=== PATIENT | female | born 1975 | race Two or more races ===

== ENCOUNTER → 2022-08-31 | Outpatient (CLI) | payer OTHER ==
--- NOTE | 2022-08-31 17:10 | XR ---
EXAMINATION TYPE: XR knee complete RT DATE OF EXAM: 08/31/2022 4:54 PM INDICATION: Patient age:Female; 46 years old; Reason for study: [id number]; COMPARISON: None. TECHNIQUE: The Right knee(s) was examined in Frontal, lateral and oblique projections. FINDINGS: No evidence of any acute osseous pathology, joint space narrowing, soft tissue swelling, or joint effusion is noted. Mild osteophyte formation and tibial plateau and patella. IMPRESSION: 1. No acute osseous pathology. 2. Mild tricompartmental osteoarthritic changes.
--- NOTE | 2022-08-31 17:10 | XR ---
EXAMINATION TYPE: XR shoulder complete LT DATE OF EXAM: 08/31/2022 4:54 PM INDICATION: Patient age:Female; 46 years old; Reason for study: [id number]; COMPARISON: None TECHNIQUE: The left shoulder was examined in AP, internally rotated and scapular Y projections. . FINDINGS: No evidence of acute osseous pathology, joint dislocation, or soft tissue swelling. The remaining por tions of the visualized chest are unremarkable. Mild osteophyte formation of the distal clavicle. IMPRESSION: 1. No acute osseous pathology. 2. Mild left shoulder osteoarthritis changes.
== END | disposition home or self-care (01) ==
LOC: RADXRMAIN 16:37
PROVIDERS: ATTEND Emergency Medicine
DX: S43.402A Unspecified sprain of left shoulder joint, initial encounter (principal); S80.01XA Contusion of right knee, initial encounter; M17.11 Unilateral primary osteoarthritis, right knee; M19.012 Primary osteoarthritis, left shoulder

== ENCOUNTER → 2022-09-17 | Day surgery (SDC) | payer BC ==
--- NOTE | 2022-09-23 09:51 | MM ---
Reason for Exam: Additional evaluation requested from abnormal screening. Risk Values: America 5 year model risk: 0.5%. NCI Lifetime model risk: 6.5%. Tissue Density: Left: The breast tissue is heterogeneously dense. This may lower the sensitivity of mammography. Pathology Description: Location: 10 o'clock. Marker Left Behind. Needle Type: Mammotone Cores: 6 Skin Nicks: 1 Gauge: 13 The procedure of ultrasound guided core biopsy was explained to the patient. Benefits, alternatives, and risks were discussed. An informed consent was then obtained. A timeout was performed. The patient was placed in supine positioning for imaging and for the procedure. The overlying skin was prepped and draped in usual sterile fashion. Lidocaine was used as anesthetic into the skin and subcutaneous tissue up to area of concern in the left breast. A small skin tian was made with surgical scalpel. Under ultrasound guidance, a 12-gauge vacuum assisted biopsy gun device was used to obtain 7 core samples. A biopsy clip was left in lesion. Hydromark coil core marker was placed. There was some bleeding present which was easily controlled with direct pressure. The patient tolerated the procedure well without any immediate complication. The patient was kept in the radiology department for short stay after the procedure and then discharged home in stable condition. Postprocedure mammogram: The patient was transferred to mammography for physician ordered post procedure mammogram for clip placement verification. Clip is within the expected region of the biopsy. Impression: Successful ultrasound guided core biopsy of area of concern in the left breast, full pathology results to follow. Recommendations: 1. Recommendations are pending pathology results. Pathology Results: Result: Benign, Fibroadenoma. LEFT BREAST, 10:00, ULTRASOUND GUIDED NEEDLE CORE BIOPSY: Fibroadenoma and background fibrocystic changes. Overall Assessment: Benign Assessment: MG diagnostic mammo LT wo CAD. - Left: Benign, BI-RAD 2. Management: Diagnostic Breast Ultrasound of the left breast in 6 months. Electronically signed and approved by: Viktor Davis D.O. Radiologis
== END ==
LOC: RADUSWWP 12:08
PROVIDERS: ATTEND Surgery
DX: D24.2 Benign neoplasm of left breast (principal); N60.12 Diffuse cystic mastopathy of left breast; R92.8 Other abnormal and inconclusive findings on diagnostic imaging of breast
CPT/HCPCS: 88305; 77065; 19083; A4648

== ENCOUNTER → 2022-09-24 | Outpatient (CLI) | payer BC ==
[2022-09-24 11:12] VITALS: BP 123/80; PULSE 75; RESP 16; TEMP 98.3
--- NOTE | 2022-09-24 11:53 | P.GSHP ---
History of Present Illness H&P Date: 09/24/22 Chief Complaint: fibroadenoma left breast Niin is a 46 year old female seen in consultation for Dr. Leon regarding an ultrasound core biopsy of the left breast. She underwent a bilateral diagnostic mammogram on [id number]. This revealed a 1.9 x 1.8 cm lesion in the left breast. This was followed by an ultrasound of the left breast which was done in . This revealed a 1.4 x 1.5 cm lesion in the left breast for which core biopsy was recommended. The biopsy was performed [id number]. Pathology revealed a fibroadenoma and this was felt to be benign concordant. The process started with the patient getting a chest x-ray on 07/01/2022. The chest x-ray led to a computed tomography scan of the chest. The computed tomography scan was performed on . The computed tomography scan revealed a left breast mass and a mammogram was recommended. The patient was initially seen secondary to chest pain which led to the CT scan. He had lifted a child that her job and developed a strained muscle. She did not feel any lumps masses or nodules of concern in either breast prior to the workup. Since the workup she can feel some fullness at the area of the biopsy. She is not complaining of any niopple discharge or skin changes. Prior to the ultrasound-guided left breast core biopsy should not had any surgery on her breast. Caffeine: drinks pop daily at least 1 can nicotine: none Chocolate: occasional Family History: paternal grandmother: breast cancer from this maternal granmother: lung cancer maternal cousin: testicular cancer maternal aunt: Leukemia Hormonal history: menarche: 13 , breast fed: yes, age at first : 21 periods does not have them as is on DEPO DEPO: 4 years had an ablation done prior to this BCP: only DEPO Surgical History: uterine ablation Medical History: peptic ulcer in the past Social History: nicotine: none alcohol: none drugs: none - Constitutional Constitutional: Denies chills, Denies fever - EENT Eyes: denies blurred vision, denies pain Ears: deny: decreased hearing, tinnitus Ears, nose, mouth and throat: Denies headache, Denies sore throat - Breasts Breasts: bilateral: as per HPI - Cardiovascular Cardiovascular: Denies chest pain, Denies shortness of breath - Respiratory Respiratory: Denies cough, Denies 7 - Gastrointestinal Gastrointestinal: Denies abdominal pain, Denies diarrhea, Denies nausea, Denies vomiting - Genitourinary (Female) Genitourinary: Denies dysuria, Denies hematuria - Menstruation Menstruation: Reports as per HPI - Musculoskeletal Musculoskeletal: Denies myalgias - Integumentary Integumentary: Denies pruritus, Denies rash - Neurological Neurological: Denies numbness, Denies weakness - Psychiatric Psychiatric: Denies anxiety, Denies depression - Endocrine Endocrine: Denies fatigue, Denies weight change - Hematologic/Lymphatic Comment: none - Allergic/Immunologic Allergic/Immunologic: Reports seasonal allergies Past Medical History Additional Past Medical History / Comment(s): brain "cluster of veins" , 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 History of Any Multi-Drug Resistant Organisms: None Reported Past Surgical History: Uterine Ablation Past Anesthesia/Blood Transfusion Reactions: No Reported Reaction Past Psychological History: No Psychological Hx Reported Smoking Status: Never smoker Past Alcohol Use History: None Reported Past Drug Use History: None Reported Medications and Allergies Home Medications Medication Instructions Recorded Confirmed Type No Known Home Medications 09/09/22 09/24/22 History Allergies Allergy/AdvReac Type Severity Reaction Status Date / Time No Known Allergies Allergy Verified 09/24/22 11:12 Surgical - Exam Vital Signs Temp Pulse Resp BP Pulse Ox 98.3 F 75 16 123/80 98 09/24/22 11:10 09/24/22 11:10 09/24/22 11:10 09/24/22 11:10 09/24/22 11:10 - General no distress - Eyes normal ocular movement - ENT no hearing loss - Neck trachea midline - Respiratory normal respiratory effort, clear to auscultation - Cardiovascular Rhythm: regular Heart Sounds: normal: S1, S2 - Abdomen Abdomen: soft, non tender, no guarding, no rigid, no rebound - Integumentary normal turgor - Neurologic no disoriented, no combative - Musculoskeletal normal gait, normal posture - Psychiatric oriented to time, oriented to person, oriented to place, speech is normal, memory intact Breast Exam: BRA: 34B inspection: Bilateral grade 2/3 ptosis Palpation: Right breast: Multi-positional exam fibrocystic changes no dominant masses or nodules of concern Right axilla: No adenopathy of concern left breast: Multiple positional exam fibrocystic changes, in the upper inner quadrant there is some fullness which may be related to her recent core biopsy was in the vicinity of the known fibroadenoma Left axilla: No adenopathy of concern Results Ultrasound and mammogram reviewed Assessment and Plan Assessment: Impression: Ultrasound proven fibroadenoma left breast at area of radiographic abnormality Fibrocystic breast changes Plan: 3. Left breast ultrasound in 6 months with physician exam at that time If the area increases her patient is concerned she will be seen sooner CC: Dr. Leon
== END ==
LOC: WWCWWP 10:44
PROVIDERS: ATTEND Surgery
DX: N60.22 Fibroadenosis of left breast (principal)

== ENCOUNTER → 2023-03-25 | Outpatient (CLI) | payer BC ==
--- NOTE | 2023-03-25 10:55 | USB ---
Reason for Exam: Follow-up at short interval from prior study. Patient History: 09/17/2022, Benign US biopsy breast VAD LT on the left side. Risk Values: America 5 year model risk: 0.8%. NCI Lifetime model risk: 7.7%. Prior Study Comparison: 09/17/2022 Left MG diagnostic mammo LT wo CAD., [facility]. Findings: The area of palpable concern of the left breast, the axilla of the left breast and the retroareolar of the left breast were scanned. Targeted ultrasound at the patient's 10:00 biopsy site including the subareolar region and axilla. Redemonstrated biopsy-proven fibroadenoma currently 1.5 x 1.3 x 0.6 cm. Microclip within the fibroadenoma from recent biopsy. No other solid or cystic lesion. Overall Assessment: Benign, BI-RAD 2 Management: Screening Mammogram of both breasts in 6 months. A clinical breast exam by your physician is recommended on an annual basis and results should be correlated with mammographic findings. This exam should not preclude additional follow-up of suspicious palpable abnormalities. Results were given to the patient verbally at the time of exam. Electronically signed and approved by: Hodan Barlow M.D. Radiologist
--- NOTE | 2023-03-25 11:26 | P.PN ---
Subjective Progress Note Date: 03/25/23 fibroadenoma left breast Nini is a 46 year old female seen in consultation for Dr. Leon regarding an ultrasound core biopsy of the left breast. She underwent a bilateral diagnostic mammogram on [id number]. This revealed a 1.9 x 1.8 cm lesion in the left breast. This was followed by an ultrasound of the left breast which was done in . This revealed a 1.4 x 1.5 cm lesion in the left breast for which core biopsy was recommended. The biopsy was performed [id number]. Pathology revealed a fibroadenoma and this was felt to be benign concordant. The process started with the patient getting a chest x-ray on 07/01/2022. The chest x-ray led to a computed tomography scan of the chest. The computed tomography scan was performed on . The computed tomography scan revealed a left breast mass and a mammogram was recommended. The patient was initially seen secondary to chest pain which led to the CT scan. He had lifted a child that her job and developed a strained muscle. She did not feel any lumps masses or nodules of concern in either breast prior to the workup. Since the workup she can feel some fullness at the area of the biopsy. She is not complaining of any niopple discharge or skin changes. Prior to the ultrasound-guided left breast core biopsy should not had any surgery on her breast. She had a repeat left breast ultrasound on 03-25-23 which was BIRAD 2 and showed the area of fibroadenoma to be stable, 1.5 by 1.3 cm in size. It is not complaining of any new lumps masses or nodules of concern in either breast. She is complaining of some fullness in the 1 to 2 o'clock position of the left breast, this area was not scanned. Caffeine: drinks pop daily at least 1 can nicotine: none Chocolate: occasional Family History: paternal grandmother: breast cancer from this maternal granmother: lung cancer maternal cousin: testicular cancer maternal aunt: Leukemia Hormonal history: menarche: 13 , breast fed: yes, age at first : 21 periods does not have them as is on DEPO DEPO: 4 years had an ablation done prior to this BCP: only DEPO Surgical History: uterine ablation Medical History: peptic ulcer in the past Social History: nicotine: none alcohol: none drugs: none - Constitutional Constitutional: Denies chills, Denies fever - EENT Eyes: denies blurred vision, denies pain Ears: deny: decreased hearing, tinnitus Ears, nose, mouth and throat: Denies headache, Denies sore throat - Breasts Breasts: bilateral: as per HPI - Cardiovascular Cardiovascular: Denies chest pain, Denies shortness of breath - Respiratory Respiratory: Denies cough, Denies 7 - Gastrointestinal Gastrointestinal: Denies abdominal pain, Denies diarrhea, Denies nausea, Denies vomiting - Genitourinary (Female) Genitourinary: Denies dysuria, Denies hematuria - Menstruation Menstruation: Reports as per HPI - Musculoskeletal Musculoskeletal: Denies myalgias - Integumentary Integumentary: Denies pruritus, Denies rash - Neurological Neurological: Denies numbness, Denies weakness - Psychiatric Psychiatric: Denies anxiety, Denies depression - Endocrine Endocrine: Denies fatigue, Denies weight change - Hematologic/Lymphatic Comment: none - Allergic/Immunologic Allergic/Immunologic: Reports seasonal allergies Past Medical History Additional Past Medical History / Comment(s): brain "cluster of veins" , 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 History of Any Multi-Drug Resistant Organisms: None Reported Past Surgical History: Uterine Ablation Past Anesthesia/Blood Transfusion Reactions: No Reported Reaction Past Psychological History: No Psychological Hx Reported Smoking Status: Never smoker Past Alcohol Use History: None Reported Past Drug Use History: None Reported Medications and Allergies Home Medications Medication Instructions Recorded Confirmed Type No Known Home Medications 09/09/22 09/24/22 History Allergies Allergy/AdvReac Type Severity Reaction Status Date / Time No Known Allergies Allergy Verified 09/24/22 11:12 Objective - Constitutional General appearance: Present: cooperative - EENT Eyes: Present: EOMI ENT: Present: hearing grossly normal - Neck Neck: Present: normal ROM - Respiratory Respiratory: bilateral: CTA - Cardiovascular Rhythm: regular Heart sounds: normal: S1, S2 - Gastrointestinal General gastrointestinal: Present: soft - Integumentary Integumentary: Present: normal turgor - Musculoskeletal Musculoskeletal: Present: gait normal - Psychiatric Psychiatric: Present: A&O x's 3, appropriate affect, intact judgment & insight - Additional findings Additional findings: Breast Exam: BRA: 34B inspection: Bilateral grade 2/3 ptosis Palpation: Right breast: Multi-positional exam fibrocystic changes no dominant masses or nodules of concern Right axilla: No adenopathy of concern left breast: Multiple positional exam fibrocystic changes, although on prior examination upper inner quadrant there was some fullness which was felt related to core biopsy nothing of concern was noted in the upper inner quadrant on today's exam, there is some fullness in the 1 to 2 o'clock position in the lateral aspect of the left breast, this area was not scan on today's ultrasound Left axilla: No adenopathy of concern Assessment and Plan Assessment: Impression: Ultrasound core biopsy proven fibroadenoma left breast at area of radiographic abnormality, upper inner left breast new nodularity 1 to 2 o'clock position left breast Fibrocystic breast changes Plan: bilatereal mammogram in 6 months Ultrasound of area of new nodularity 1 to 2 o'clock position left breast at this time with follow up after ultrasound CC: Dr. Leon
== END | disposition home or self-care (01) ==
LOC: RADUSWWP 10:14
PROVIDERS: ATTEND Surgery
DX: R92.8 Other abnormal and inconclusive findings on diagnostic imaging of breast (principal)

== ENCOUNTER → 2023-03-25 | Outpatient (CLI) | payer BC ==
[2023-03-25 11:26] VITALS: BP 121/83; PULSE 73; RESP 16; TEMP 98.7
== END ==
LOC: WWCWWP 10:13
PROVIDERS: ATTEND Surgery
DX: Z53.9 Procedure and treatment not carried out, unspecified reason (principal)

== ENCOUNTER → 2023-03-25 | Outpatient (CLI) | payer BC ==
--- NOTE | 2023-03-25 14:39 | USB ---
Reason for Exam: Clinical finding. Patient History: Menarche at age 12. First Full-Term at age 21. 09/17/2022, Benign US biopsy breast VAD LT on the left side. Paternal grandmother had breast cancer. Risk Values: [place] 5 year model risk: 0.7%. NCI Lifetime model risk: 6.5%. Technique: Method: Targeted. Prior Study Comparison: 09/17/2022 Left MG diagnostic mammo LT wo CAD., [facility]. Findings: The area of palpable concern of the left breast, the axilla of the left breast and the retroareolar of the left breast were scanned. Additional targeted scanning at the physician palpated site 1 to 2:00 position. Dense tissues are present here without solid or cystic lesion.. Overall Assessment: Benign, BI-RAD 2 Management: Screening Mammogram of both breasts in 1 year. Further clinical management of any suspicious palpable abnormalities. A clinical breast exam by your physician is recommended on an annual basis. Patient should continue monthly self breast exams. Results were given to the patient verbally at the time of exam. Electronically signed and approved by: Hodan Barlow M.D. Radiologist
--- NOTE | 2023-03-25 14:57 | MM ---
Reason for Exam: Clinical finding. Patient History: Menarche at age 12. First Full-Term at age 21. 09/17/2022, Benign US biopsy breast VAD LT on the left side. Paternal grandmother had breast cancer. Risk Values: America 5 year model risk: 0.7%. NCI Lifetime model risk: 6.5%. Prior Study Comparison: 09/17/2022 Left MG diagnostic mammo LT wo CAD., [facility]. Tissue Density: Left: The breast tissue is heterogeneously dense. This may lower the sensitivity of mammography. Findings: Analyzed By CAD. Biopsy proven fibroadenoma posterior upper inner quadrant right breast with microclip in place. We note a palpable marker along the upper outer quadrant. No significant mass, suspicious calcification, or other discrete abnormality is seen. An area of asymmetric density superior left MLO view anterior to middle depth does not persist on the 3-D lateral view. Overall Assessment: Incomplete: need additional imaging evaluation, BI-RAD 0 Management: Diagnostic Breast Ultrasound of the left breast. Electronically signed and approved by: Hodan Barlow M.D. Radiologist
== END | disposition home or self-care (01) ==
LOC: RADMAMWWP 13:23
PROVIDERS: ATTEND Surgery
DX: N63.20 Unspecified lump in the left breast, unspecified quadrant (principal); Z80.3 Family history of malignant neoplasm of breast
CPT/HCPCS: 77061; 77065

== ENCOUNTER → 2023-09-28 | Outpatient (CLI) | payer BC, OTHER ==
--- NOTE | 2023-09-28 09:07 | USB ---
Reason for Exam: Follow-up at short interval from prior study. Patient History: Menarche at age 12. First Full-Term at age 21. 09/17/2022, Benign US biopsy breast VAD LT on the left side. Paternal grandmother had breast cancer. Risk Values: [place] 5 year model risk: 0.7%. NCI Lifetime model risk: 6.5%. Technique: Method: Whole Breast Handheld. Prior Study Comparison: 09/17/2022 Left MG diagnostic mammo LT wo CAD., [facility]. 03/25/2023 Left MG 3D diag mammo w/cad LT, [facility]. Findings: The whole breast of the left breast, the axilla of the left breast and the retroareolar of the left breast were scanned. A complete US of all four quadrants of the breast, axilla, and retro-areolar region were reviewed. At the 10:00 position, 8 cm from the nipple, there is redemonstrated biopsy proven 1.4 x 1.2 x 0.6 cm fibroadenoma containing a microclip. No other solid or cystic lesion or axillary adenopathy. Patient due for annual exam. Overall Assessment: Incomplete: need additional imaging evaluation, BI-RAD 0 Management: Diagnostic Mammogram of both breasts. Electronically signed and approved by: Hodan Barlow M.D. Radiologist
--- NOTE | 2023-09-28 09:24 | MM ---
Reason for Exam: Follow-up at short interval from prior study. Patient History: Menarche at age 12. First Full-Term at age 21. 09/17/2022, Benign US biopsy breast VAD LT on the left side. Paternal grandmother had breast cancer. Risk Values: America 5 year model risk: 0.7%. NCI Lifetime model risk: 6.5%. Tissue Density: The breast tissue is heterogeneously dense. This may lower the sensitivity of mammography. Findings: Analyzed By CAD. Redemonstrated circumscribed mass upper quadrant left breast with microclip related to prior biopsy proven fibroadenoma. Asymmetric density superior right MLO view does not persist on repeat image and tomographic slices. Findings compatible with superimposition shadow. No significant change from prior exams. Overall Assessment: Benign, BI-RAD 2 Management: Screening Mammogram of both breasts in 1 year. . Results were given to the patient verbally at the time of exam. Patient should continue monthly self-breast exams. A clinical breast exam by your physician is recommended on an annual basis. This exam should not preclude additional follow-up of suspicious palpable abnormalities. Note on America scores and lifetime risk: 1. A America score greater than 3% is considered moderate risk. If this is the case, consider specialist referral to assess eligibility for a risk reducing agent. 2. If overall lifetime risk for the development of breast cancer is 20% or higher, the patient may qualify for future screening with alternating mammogram and breast MRI. Electronically signed and approved by: Hodan Barlow M.D. Radiologist
== END | disposition home or self-care (01) ==
LOC: RADUSWWP 08:29
PROVIDERS: ATTEND Surgery
DX: R92.333 Mammographic heterogeneous density, bilateral breasts (principal); Z80.3 Family history of malignant neoplasm of breast
CPT/HCPCS: 77062; 77066

== ENCOUNTER → 2023-12-31 | Outpatient (CLI) | payer BC ==
--- NOTE | 2023-12-31 11:56 | P.PN ---
Subjective Progress Note Date: 12/31/23 Principal diagnosis: fibroadenoma left breast 03/25/23 fibroadenoma left breast Nini is a 46 year old female seen in consultation for Dr. Leon regarding an ultrasound core biopsy of the left breast. She underwent a bilateral diagnostic mammogram on 10261105. This revealed a 1.9 x 1.8 cm lesion in the left breast. This was followed by an ultrasound of the left breast which was done in . This revealed a 1.4 x 1.5 cm lesion in the left breast for which core biopsy was recommended. The biopsy was performed [id number]. Pathology revealed a fibroadenoma and this was felt to be benign concordant. The process started with the patient getting a chest x-ray on 07/01/2022. The chest x-ray led to a computed tomography scan of the chest. The computed tomography scan was performed on . The computed tomography scan revealed a left breast mass and a mammogram was recommended. The patient was initially seen secondary to chest pain which led to the CT scan. She had lifted a child at her job and developed a strained muscle. She did not feel any lumps masses or nodules of concern in either breast prior to the workup. Since the workup she can feel some fullness at the area of the biopsy. She is not complaining of any nipple discharge or skin changes. Prior to the ultrasound-guided left breast core biopsy she had not had any surgery on her breast. She had a repeat left breast ultrasound on 03-25-23 which was BIRAD 2 and showed the area of fibroadenoma to be stable, 1.5 by 1.3 cm in size. It is not complaining of any new lumps masses or nodules of concern in either breast. She is complaining of some fullness in the 1 to 2 o'clock position of the left breast, this area was not scanned. 12-31-23 The patient had a left breast ultrasound on 09-28-24 and a bilateral mammogram on 09-28-24 BIRAD 2; stable fibroadenoma left breast 1.4 by 1.2 by 0.6 cm Of any new lumps masses or nodules of concern in either breast, and tenderness in the left breast in the upper outer quadrant area. Fibroadenoma is in the upper inner quadrant She is not complaining of any nipple discharge, she is not complaining of any recent breast trauma or infection Caffeine: drinks pop daily at least 1 can nicotine: none Chocolate: occasional Family History: paternal grandmother: breast cancer from this maternal granmother: lung cancer maternal cousin: testicular cancer maternal aunt: Leukemia Hormonal history: menarche: 13 , breast fed: yes, age at first : 21 periods does not have them as is on DEPO DEPO: 4 years had an ablation done prior to this BCP: only DEPO Surgical History: uterine ablation Medical History: peptic ulcer in the past Social History: nicotine: none alcohol: none drugs: none - Constitutional Constitutional: Denies chills, Denies fever - EENT Eyes: denies blurred vision, denies pain Ears: deny: decreased hearing, tinnitus Ears, nose, mouth and throat: Denies headache, Denies sore throat - Breasts Breasts: bilateral: as per HPI - Cardiovascular Cardiovascular: Denies chest pain, Denies shortness of breath - Respiratory Respiratory: Denies cough - Gastrointestinal Gastrointestinal: Denies abdominal pain, Denies diarrhea, Denies nausea, Denies vomiting - Genitourinary (Female) Genitourinary: Denies dysuria, Denies hematuria - Menstruation Menstruation: Reports as per HPI - Musculoskeletal Musculoskeletal: Denies myalgias - Integumentary Integumentary: Denies pruritus, Denies rash - Neurological Neurological: Denies numbness, Denies weakness - Psychiatric Psychiatric: Denies anxiety, Denies depression - Endocrine Endocrine: Denies fatigue, Denies weight change - Hematologic/Lymphatic Comment: none - Allergic/Immunologic Allergic/Immunologic: Reports seasonal allergies Past Medical History Additional Past Medical History / Comment(s): brain "cluster of veins" , 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 History of Any Multi-Drug Resistant Organisms: None Reported Past Surgical History: Uterine Ablation Past Anesthesia/Blood Transfusion Reactions: No Reported Reaction Past Psychological History: No Psychological Hx Reported Smoking Status: Never smoker Past Alcohol Use History: None Reported Past Drug Use History: None Reported Medications and Allergies Home Medications Medication Instructions Recorded Confirmed Type No Known Home Medications 09/09/22 09/24/22 History Allergies Allergy/AdvReac Type Severity Reaction Status Date / Time No Known Allergies Allergy Verified 09/24/22 11:12 Objective - Constitutional General appearance: Present: cooperative - EENT Eyes: Present: EOMI ENT: Present: hearing grossly normal - Neck Neck: Present: normal ROM - Respiratory Respiratory: bilateral: CTA - Cardiovascular Rhythm: regular Heart sounds: normal: S1, S2 - Integumentary Integumentary: Present: normal turgor - Musculoskeletal Musculoskeletal: Present: gait normal - Psychiatric Psychiatric: Present: A&O x's 3, appropriate affect, intact judgment & insight - Additional findings Additional findings: Breast Exam: BRA: 34B inspection: Bilateral grade 2/3 ptosis Palpation: Right breast: Multi-positional exam fibrocystic changes no dominant masses or nodules of concern Right axilla: No adenopathy of concern left breast: Multiple positional exam fibrocystic changes, no dominate masses or nodules of concern, slight increased nodularity in two o'clock position which is tender to palpation Left axilla: No adenopathy of concern Assessment and Plan Assessment: Impression: Ultrasound core biopsy proven fibroadenoma left breast at area of radiographic abnormality, upper inner left breast 10:00 tender nodularity 1 to 2 o'clock position left breast Fibrocystic breast changes Plan: Core biopsy in the office of area of tender nodularity 1 to 2 o'clock position left breast Bilateral mammogram in 1 year CC: Dr. Leon
[2023-12-31 12:15] VITALS: BP 119/83; PULSE 83; RESP 16; TEMP 98.4
== END ==
LOC: WWCWWP 11:13
PROVIDERS: ATTEND Surgery
DX: R92.8 Other abnormal and inconclusive findings on diagnostic imaging of breast (principal); D24.2 Benign neoplasm of left breast; N60.11 Diffuse cystic mastopathy of right breast; N60.12 Diffuse cystic mastopathy of left breast; L98.8 Other specified disorders of the skin and subcutaneous tissue; R07.9 Chest pain, unspecified; Z80.3 Family history of malignant neoplasm of breast

== ENCOUNTER → 2024-01-12 | Outpatient (CLI) | payer BC ==
--- NOTE | 2024-01-12 11:58 | P.PCN ---
Date of Procedure: 01/12/24 Preoperative Diagnosis: Tender nodularity 2 o'clock position left breast Postoperative Diagnosis: Same Procedure(s) Performed: Core biopsy area of tender nodularity left breast at 2:00 Anesthesia: local Surgeon: Chioma Santoro Estimated Blood Loss (ml): 1 Pathology: other (Tissue breast) Condition: stable Disposition: same day Indications for Procedure: tender nodularity left breast Operative Findings: Fibrofatty breast tissue Description of Procedure: Following informed consent the area of concern in the left breast was prepped using chlorhexidine. 1% of lidocaine was used to anesthetize the area of concern. A small tian was made in the skin. A Biottery 18-gauge needle needle biopsy system was used to obtain 3 core biopsy specimens of the area. The patient tolerated this without difficulty. A Steri-Strip was applied. The specimen was sent to pathology. The patient will follow-up next week for results. If the results are benign the patient will have a repeat left breast ultrasound in 6 months with examination at that time CC: Dr. Leon, Dr. Rodgers
[2024-01-12 13:07] VITALS: BP 122/83; PULSE 84; RESP 16; TEMP 98.1
== END ==
LOC: WWCWWP 11:30
PROVIDERS: ATTEND Surgery
DX: N63.21 Unspecified lump in the left breast, upper outer quadrant (principal)
CPT/HCPCS: 88305

== ENCOUNTER → 2024-09-20 | Outpatient (CLI) | payer BC ==
--- NOTE | 2024-09-20 08:51 | MM ---
Reason for Exam: Additional evaluation requested from prior study. Last screening mammogram was performed 12 month(s) ago. Patient History: Menarche at age 12. First Full-Term at age 21. Premenopausal. Patient has history of breast feeding. 09/17/2022, Benign US biopsy breast VAD LT on the left side. Paternal grandmother had breast cancer. Risk Values: America 5 year model risk: 0.7%. NCI Lifetime model risk: 6.4%. Prior Study Comparison: 09/17/2022 Left MG diagnostic mammo LT wo CAD., [facility]. 03/25/2023 Left MG 3D diag mammo w/cad LT, [facility]. 09/28/2023 Bilateral MG 3D diag mammo w/cad [facility], [facility]. Tissue Density: The breasts are heterogeneously dense, which may obscure small masses. Findings: Analyzed By CAD. Previously biopsied left breast mass. Asymmetric density left breast is unchanged dating back to 2021. No suspicious microcalcifications. No new breast masses present. Overall Assessment: Benign, BI-RAD 2 Management: Screening Mammogram of both breasts in 1 year. . Results were given to the patient verbally at the time of exam. Patient should continue monthly self-breast exams. A clinical breast exam by your physician is recommended on an annual basis. This exam should not preclude additional follow-up of suspicious palpable abnormalities. Note on America scores and lifetime risk: 1. A America score greater than 3% is considered moderate risk. If this is the case, consider specialist referral to assess eligibility for a risk reducing agent. 2. If overall lifetime risk for the development of breast cancer is 20% or higher, the patient may qualify for future screening with alternating mammogram and breast MRI. [facility], , 09/20/2024 8:48 AM. Electronically signed and approved by: Luis Eduardo Justin M.D. Radiologis
== END | disposition home or self-care (01) ==
LOC: RADMAMWWP 08:11
PROVIDERS: ATTEND Surgery
DX: R92.8 Other abnormal and inconclusive findings on diagnostic imaging of breast (principal); R92.333 Mammographic heterogeneous density, bilateral breasts; Z80.3 Family history of malignant neoplasm of breast
CPT/HCPCS: 77062; 77066

== ENCOUNTER → 2024-12-21 | Outpatient (CLI) | payer OTHER ==
[2024-12-21 08:34] VITALS: BP 106/73; PULSE 68; RESP 17; TEMP 97.9
--- NOTE | 2024-12-21 09:01 | P.PN ---
Subjective Progress Note Date: 12/21/24 Principal diagnosis: fibrocystic breast disease fibroadenoma left breast 03/25/23 fibroadenoma left breast Nini is a 46 year old female seen in consultation for Dr. Leon regarding an ultrasound core biopsy of the left breast. She underwent a bilateral diagnostic mammogram on 10261105. This revealed a 1.9 x 1.8 cm lesion in the left breast. This was followed by an ultrasound of the left breast which was done in . This revealed a 1.4 x 1.5 cm lesion in the left breast for which core biopsy was recommended. The biopsy was performed [id number]. Pathology revealed a fibroadenoma and this was felt to be benign concordant. The process started with the patient getting a chest x-ray on 07/01/2022. The chest x-ray led to a computed tomography scan of the chest. The computed tomography scan was performed on . The computed tomography scan revealed a left breast mass and a mammogram was recommended. The patient was initially seen secondary to chest pain which led to the CT scan. She had lifted a child at her job and developed a strained muscle. She did not feel any lumps masses or nodules of concern in either breast prior to the workup. Since the workup she can feel some fullness at the area of the biopsy. She is not complaining of any nipple discharge or skin changes. Prior to the ultrasound-guided left breast core biopsy she had not had any surgery on her breast. She had a repeat left breast ultrasound on 03-25-23 which was BIRAD 2 and showed the area of fibroadenoma to be stable, 1.5 by 1.3 cm in size. It is not complaining of any new lumps masses or nodules of concern in either breast. She is complaining of some fullness in the 1 to 2 o'clock position of the left breast, this area was not scanned. 12-31-23 The patient had a left breast ultrasound on 09-28-24 and a bilateral mammogram on 09-28-24 BIRAD 2; stable fibroadenoma left breast 1.4 by 1.2 by 0.6 cm Of any new lumps masses or nodules of concern in either breast, and tenderness in the left breast in the upper outer quadrant area. Fibroadenoma is in the u pper inner quadrant She is not complaining of any nipple discharge, she is not complaining of any recent breast trauma or infection 12-21-24 Patient had a core biopsy in the office of an area of tenderness at 2:00 left breast on 01-12-24 which was benign. She had a bilateral mammogram on 09-20-24 BIRAD 2. She has a known fibroadenoma of the left breast biopsied in 2021. She is not complaining of any new lumps masses or nodules of concern in either breast. The area of tenderness noted a year ago has resolved. Caffeine: drinks pop daily < 1 can nicotine: none Chocolate: occasional Family History: paternal grandmother: breast cancer from this maternal granmother: lung cancer maternal cousin: testicular cancer maternal aunt: Leukemia Hormonal history: menarche: 13 , breast fed: yes, age at first : 21 periods does not have them as is on DEPO DEPO: 4 years had an ablation done prior to this BCP: only DEPO Surgical History: uterine ablation Medical History: peptic ulcer in the past Social History: nicotine: none alcohol: none drugs: none - Constitutional Constitutional: Denies chills, Denies fever - EENT Eyes: denies blurred vision, denies pain Ears: deny: decreased hearing, tinnitus Ears, nose, mouth and throat: Denies headache, Denies sore throat - Breasts Breasts: bilateral: as per HPI - Cardiovascular Cardiovascular: Denies chest pain, Denies shortness of breath - Respiratory Respiratory: Denies cough - Gastrointestinal Gastrointestinal: Denies abdominal pain, Denies diarrhea, Denies nausea, Denies vomiting - Genitourinary (Female) Genitourinary: Denies dysuria, Denies hematuria - Menstruation Menstruation: Reports as per HPI - Musculoskeletal Musculoskeletal: Denies myalgias - Integumentary Integumentary: Denies pruritus, Denies rash - Neurological Neurological: Denies numbness, Denies weakness - Psychiatric Psychiatric: Denies anxiety, Denies depression - Endocrine Endocrine: Denies fatigue, Denies weight change - Hematologic/Lymphatic Comment: none - Allergic/Immunologic Allergic/Immunologic: Reports seasonal allergies Past Medical History Additional Past Medical History / Comment(s): brain "cluster of veins" , 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 History of Any Multi-Drug Resistant Organisms: None Reported Past Surgical History: Uterine Ablation Past Anesthesia/Blood Transfusion Reactions: No Reported Reaction Past Psychological History: No Psychological Hx Reported Smoking Status: Never smoker Past Alcohol Use History: None Reported Past Drug Use History: None Reported Medications and Allergies Home Medications Medication Instructions Recorded Confirmed Type No Known Home Medications 09/09/22 09/24/22 History Allergies Allergy/AdvReac Type Severity Reaction Status Date / Time No Known Allergies Allergy Verified 09/24/22 11:12 Objective - Vital Signs Vital signs: Vital Signs Temp 97.9 F 12/21/24 08:32 Pulse 68 12/21/24 08:32 Resp 17 12/21/24 08:32 BP 106/73 12/21/24 08:32 Pulse Ox 97 12/21/24 08:32 FiO2 Intake & Output 12/20/24 12/21/24 12/21/24 18:59 06:59 18:59 Weight 93.894 kg - Constitutional General appearance: Present: cooperative - EENT Eyes: Present: EOMI ENT: Present: hearing grossly normal - Neck Neck: Present: normal ROM - Respiratory Respiratory: bilateral: CTA - Cardiovascular Rhythm: regular Heart sounds: normal: S1, S2 - Integumentary Integumentary: Present: normal turgor - Musculoskeletal Musculoskeletal: Present: gait normal - Psychiatric Psychiatric: Present: A&O x's 3, appropriate affect, intact judgment & insight - Additional findings Additional findings: Breast Exam: BRA: 34B inspection: Bilateral grade 2/3 ptosis Palpation: Right breast: Multi-positional exam fibrocystic changes no dominant masses or nodules of concern Right axilla: No adenopathy of concern left breast: Multiple positional exam fibrocystic changes, no dominate masses or nodules of concern Left axilla: No adenopathy of concern Assessment and Plan Assessment: Impression: Ultrasound core biopsy proven fibroadenoma left breast at area of radiographic abnormality, upper inner left breast 10:00 Resolved tender nodularity left breast Fibrocystic breast changes Bilateral mammogram 09-20-2024 benign BI-RADS 2 Plan: Bilateral mammogram in 1 year with physician exam at that time Patient to follow-up sooner any questions or concerns ultrasound left breast in one year at the time of the mammogram to follow the fibroadenoma CC: Dr. Leon
== END ==
LOC: WWCWWP 08:05
PROVIDERS: ATTEND Surgery
DX: D24.2 Benign neoplasm of left breast (principal); N60.19 Diffuse cystic mastopathy of unspecified breast; Z80.3 Family history of malignant neoplasm of breast